=== PATIENT | male | born 1985 | race American Indian/Alaskan Native ===

== ENCOUNTER 2016-06-27 19:01 | Emergency (ER) | payer OTHER ==
[2016-06-27 19:19] VITALS: BMI 55.3
[2016-06-27 19:25] VITALS: RESP 20; TEMP 100.8
--- NOTE | 2016-06-27 21:32 | ED PDOC ---
Arrival/HPI - History of Present Illness Time/Duration: Prior to Arrival, < week Symptom Onset: Gradual Symptom Course: Worsening Quality: Aching Severity Level: 6 Activities at Onset: Rest Context: Standing, Walking - General Chief Complaint: Lower Extremity Problem/Injury Time Seen by Provider: 06/27/16 20:35 - History of Present Illness Narrative History of Present Illness (Text): 06/27/16 21:32 This is a 31 year old man with a PMH notable for DM presenting to the ED for evaluation of left lower extremity swelling. The patient reports that his leg began to swell on Saturday and became erythematous on Saturday. The patient notes that he has a history of cellulitis. The patient reports minimal pain at rest and slight increase in pain with weight bearing. The patient denies shortness of breath and chest pain. (Favio Barker) Past Medical History - Provider Review Nursing Documentation Reviewed: Yes - Travel History Have you recently traveled outside [place] w/in the past 3 mons?: No - Infectious Disease Hx of Infectious Diseases: None - Tetanus Immunization Tetanus Immunization: Unknown - Integumentary Hx Cellulitis: Yes (LLE) - Psychiatric Hx Substance Use: No - Surgical History Hx Tonsillectomy: Yes - Anesthesia Hx Anesthesia: Yes Hx Anesthesia Reactions: No Hx Malignant Hyperthermia: No - Patient History Narrative Patient History: DM (Favio Barker) Family/Social History - Physician Review Nursing Documentation Reviewed: Yes Family/Social History: No Known Family HX Smoking Status: Never Smoked Hx Alcohol Use: Yes Frequency of alcohol use: Socially Hx Substance Use: No Allergies/Home Meds Allergies/Adverse Reactions: Allergies No Known Allergies Allergy (Unverified 04/07/13 21:27) Review of Systems - Physician Review All systems were reviewed & negative as marked: Yes - Review of Systems Constitutional: absent: Fatigue, Fevers Eyes: absent: Vision Changes, Photophobia ENT: absent: Hearing Changes, Tinnitus Respiratory: absent: SOB, Cough, Sputum, Wheezing Cardiovascular: Edema. absent: Chest Pain, Palpitations, Syncope Gastrointestinal: absent: Abdominal Pain, Constipation, Nausea, Vomiting Genitourinary Male: absent: Dysuria, Frequency Musculoskeletal: absent: Arthralgias, Back Pain, Neck Pain, Joint Swelling, Myalgias Skin: Rash, Cellulitis. absent: Pruritis, Skin Lesions, Laceration, Abscess, Ulcer Neurological: absent: Headache, Dizziness Endocrine: absent: Diaphoresis Hemo/Lymphatic: absent: Adenopathy Psychiatric: absent: Anxiety Physical Exam Temperature: Febrile Blood Pressure: Normal Pulse: Tachycardic Respiratory Rate: Normal Appearance: Positive for: Well-Appearing, Non-Toxic, Comfortable Pain Distress: Mild Mental Status: Positive for: Alert and Oriented X 3 - Systems Exam Head: Present: Atraumatic, Normocephalic Pupils: Present: PERRL Extroacular Muscles: Present: EOMI Conjunctiva: Present: Normal Mouth: Present: Moist Mucous Membranes. No: Drooling Neck: Present: Normal Range of Motion. No: JVD, Lymphadenopathy Respiratory/Chest: Present: Clear to Auscultation, Good Air Exchange. No: Respiratory Distress, Accessory Muscle Use, Wheezes Cardiovascular: Present: Normal S1, S2, Tachycardic. No: Regular Rate and Rhythm, Murmurs Abdomen: Present: Normal Bowel Sounds. No: Tenderness, Distention, Peritoneal Signs Back: Present: Normal Inspection. No: Decubitus Ulcer Upper Extremity: Present: Normal Inspection, Normal ROM, NORMAL PULSES, Neurovascularly Intact. No: Cyanosis, Edema, Tenderness, Swelling, Erythema, Temperature Abnormalties, Deformity Lower Extremity: Present: Edema (LLE), CALF TENDERNESS (LLE), NORMAL PULSES, Normal ROM, Tenderness (LLE), Swelling (LLE), Erythema (LLE), Temperature Abnormalties (left leg warmth), Neurovascularly Intact. No: Normal Inspection, Hortencia's Sign Neurological: Present: GCS=15, CN II-XII Intact, Speech Normal Skin: Present: Warm, Dry, Rashes, Erythematous, Hot (LLE). No: Normal Color ( Erythematous) Lymphatic: No: Cervical Adenopathy Psychiatric: Present: Alert, Oriented x 3 Vital Signs Temp Pulse Resp BP Pulse Ox 06/27/16 23:38 100.8 F H 06/27/16 22:29 111 H 20 103/49 L 100 06/27/16 19:23 100.8 F H 120 H 20 112/81 99 Medical Decision Making Reassessment Condition: Re-examined, Unchanged - Lab Interpretations I have reviewed the lab results: Yes Interpretation: Abnormal lab values - RAD Interpretation Food Concession Manager: Radiologist ED Course and Treatment: 06/27/16 21:35 Impression: This is a 31 year old man with a PMH notable for DM presenting to the ED for evaluation of left lower extremity swelling. The patient appears clinically comfortable. The patient will be evaluated and worked up for celulitis with r/ o of DVT. Differential: Cellulitis DVT Plan: LLE Dopple CBC, CMP Bactrim DS Kefflex Prior Visits None Progress Note: Patient seen and examined at the bedside. The patient has a noticeably swollen and erythematous left leg. The patient has full rom with minimal pain. the patint is able to bear weight fully. The patient was sent for doppler study of his left leg. The study was reported to me "negative for DVT" by the tech over the phone. The patient is pending lab work. 06/27/16 23:18 Patient examined. Continued tachycardia and fever. Patient advised to have inpatient examination of SIRS 2/4 systemic signs in the setting of lower extremity cellulitis. The patient refused admission. The patient's condition was discussed at length. The patient is fully aware and understands the risks associated with signing out against medical advice. The patient repeated and verbalized understanding of the risks associated with his decision. An AMA form was filled out with RN witness. The patient was given scripts of Bactrim DS and keflex prior to DC. The patient was signed out AMA. (Favio Barker) Seen and examined with resident. 31 y/o M p/w leg swelling and erythema. No DVT on US. Will treat with oral antibiotics as patient wishes to leave and follow up with PMD instead of admission but informed he may return at any time. (Ben Wong) - Lab Interpretations Lab Results: 06/27/16 21:50 06/27/16 21:50 Lab Results 06/27/16 21:50: WBC 13.4 H, RBC 4.59, Hgb 12.9 L, Hct 39.6 L, MCV 86.3, MCH 28.1 , MCHC 32.6, RDW 14.2, Plt Count 306, MPV 10.2, Gran % 71.4 H, Lymph % (Auto) 18.9 L, Benzie % (Auto) 8.8 H, Eos % (Auto) 0.7 L, Baso % (Auto) 0.2, Gran # 9.60 H, Lymph # 2.5, Benzie # 1.2 H, Eos # 0.1, Baso # 0.03, Sodium 138, Potassium 4.0 , Chloride 97 L, Carbon Dioxide 27, Anion Gap 18, BUN 16, Creatinine 0.9, Est GFR ( Amer) > 60, Est GFR (Non-Af Amer) > 60, Random Glucose 87, Calcium 9.2, Total Bilirubin 0.8, AST 33, ALT 13, Alkaline Phosphatase 65, Total Protein 9.0 H, Albumin 4.2, Globulin 4.9, Albumin/Globulin Ratio 0.9 L - RAD Interpretation Narrative RAD Interpretations (Text): 06/27/16 21:39 No DVT present in the LLE (preliminary read per the electronics repair technician) ( Favio Barker) Radiology Orders: 06/27/16 20:35 DUPLEX LOWER EXTRM VEIN LEFT [US] Stat - Medication Orders Current Medication Orders: Discontinued Medications Acetaminophen (Tylenol 325mg Tab) 650 mg PO STAT STA Stop: 06/27/16 23:26 Last Admin: 06/27/16 23:38 Dose: 650 MG MAR Pain/Vitals Document 06/27/16 23:38 MR (Rec: 06/27/16 23:38 [id number]) Pain Reassessment Is This A Pain ReAssessment? No Vitals Temperature (97.6 F-99.6 F) 100.8 F Temperature Source Oral Cephalexin Monohydrate (Keflex) 500 mg PO STAT STA PRN Reason: Protocol Stop: 06/27/16 23:18 Last Admin: 06/27/16 23:38 Dose: 500 MG Trimethoprim/Sulfamethoxazole (Bactrim Ds Tab) 1 tab PO STAT STA PRN Reason: Protocol Stop: 06/27/16 23:18 Last Admin: 06/27/16 23:38 Dose: 1 TAB Disposition/Present on Arrival - Present on Arrival Any Indicators Present on Arrival: No History of DVT/PE: No History of Uncontrolled Diabetes: No Urinary Catheter: No History of Decub. Ulcer: No History Surgical Site Infection Following: None - Disposition Have Diagnosis and Disposition been Completed?: Yes Disposition Time: 21:40 Patient Plan: Discharge - Disposition Diagnosis: Cellulitis Disposition: AGAINST MEDICAL ADVICE Condition: FAIR Discharge Instructions (ExitCare): Cellulitis (ED), Sulfamethoxazole/ Trimethoprim (By mouth), Cephalexin (By mouth) Print Language: FRENCH Additional Instructions: 1.) Follow up with PMD within 2 days of discharge from the ED 2.) If symptoms return or worsen, please return to the ED for evaluation 3.) Take Bactrim DS and Kefflex twice daily x 10 days to completion Prescriptions: Sulfamethoxazole/Trimethoprim [Bactrim DS 800 mg-160 mg] 1 tab PO BID #20 tab Cephalexin [cephalexin] 500 mg PO BID #20 cap Referrals: Anil Vallejo [Primary Care Provider] - Follow up with primary
[2016-06-27 21:59] LABS: ADD MANUAL DIFF? NO
[2016-06-27 22:02] LABS: BASO # 0.03 K/mm3 (0.0-2.0); BASO % 0.2 % (0.0-3.0); EOS # 0.1 (0.0-0.7); EOS % 0.7 % (1.5-5.0); GRAN % 71.4 % (50.0-68.0); HEMATOCRIT 39.6 % (42.0-52.0); LYMPH # 2.5 (1.2-3.4); LYMPH % 18.9 % (22.0-35.0); MEAN CELL VOLUME 86.3 fL (80.0-105.0); MEAN CORPUSCULAR HEMOGLOBIN 28.1 pg (25.0-35.0); MEAN CORPUSCULAR HGB CONC 32.6 g/dl (31.0-37.0); MEAN PLATELET VOLUME 10.2 fl (7.0-11.0); MONO # 1.2 (0.1-0.6); MONO % 8.8 % (1.0-6.0); PLATELET COUNT 306 10^3/uL (120.0-450.0); RED CELL DISTRIBUTION WIDTH 14.2 % (11.5-14.5); WHITE BLOOD COUNT 13.4 10^3/ul (4.5-11.0)
[2016-06-27 22:15] LABS: ALB/GLOB RATIO 0.9 (1.1-1.8); ALKALINE PHOSPHATASE 65 U/L (38-133); ALT/SGPT 13 U/L (7-56); AST/SGOT 33 U/L (15-59); BILIRUBIN,TOTAL 0.8 mg/dL (0.2-1.3); BLOOD UREA NITROGEN 16 mg/dL (7-21); CALCIUM 9.2 mg/dL (8.4-10.5); CARBON DIOXIDE 27 mmol/L (21-33); CHLORIDE 97 mmol/L (98-107); GFR AFRICAN-AMERICAN > 60; GLUCOSE,RANDOM 87 mg/dL (70-110); SODIUM 138 mmol/L (132-148)
[2016-06-27 22:35] VITALS: BP 103/49; PULSE 111; O2SAT 100
[2016-06-27] MEDS ORDERED: Tmp-Smz 800 mg-160 mg DS Tab PO STA (23:17)
--- NOTE | 2016-06-28 08:17 | US ---
PROCEDURE: Left lower extremity venous US HISTORY: Leg pain and swelling. Evaluate for DVT. PHYSICIAN(S): Gavino Ott MD. TECHNIQUE: Duplex sonography and color-flow Doppler with graded compression were used to evaluate the deep venous system of the left lower extremity. The exam is very limited by body habitus and edema. FINDINGS: The visualized deep venous system of the left lower extremity is sonographically normal and compressible. Normal wave forms and augmentation are seen. There is no sonographic evidence for deep venous thrombosis in the visualized segments of the left lower extremity. IMPRESSION: 1. No sonographic evidence for deep venous thrombosis in the visualized segments of the left lower extremity. 2. Very limited study
== END 2016-06-27 23:51 | disposition left against medical advice (07) ==
LOC: ED 19:01 → MERGE 19:01 → ED 23:51
DX: L03.116 Cellulitis of left lower limb (principal)